=== PATIENT | male | born 1960 | race Caucasian/White ===

== ENCOUNTER 2022-12-16 09:21 | Emergency (ER) | payer OTHER, SELFPAY | END 2022-12-16 10:53 | disposition home or self-care (01) | LOC: MADERS 09:21 | DX: S63.501A Unspecified sprain of right wrist, initial encounter (principal); M24.831 Other specific joint derangements of right wrist, not elsewhere classified; I10 Essential (primary) hypertension; E11.9 Type 2 diabetes mellitus without complications; F17.210 Nicotine dependence, cigarettes, uncomplicated; E78.00 Pure hypercholesterolemia, unspecified; X50.1XXA Overexertion from prolonged static or awkward postures, initial encounter; Y93.89 Activity, other specified; Z79.4 Long term (current) use of insulin; Z79.82 Long term (current) use of aspirin; Z79.899 Other long term (current) drug therapy ==